=== PATIENT | male | born 1985 | race African-American/Black ===

== ENCOUNTER 2020-12-11 10:23 | Emergency (ER) | payer SELFPAY ==
[~2020-12-11 10:23] MED LIST: AUGMENTIN 875-1 EACH PO; IBUPROFEN400 MG PO; IBUPROFEN800 MG PO; KEFLEX CAP 500500 MG PO; LOPRESSOR 25 MG25 MG PO; MAGIC MOUTHWASH PO; MOBIC15 MG PO; NORCO 7.5-3251 EACH PO
[2020-12-11] MEDS ORDERED: CYCLOBENZAPRINE10 MG PO (14:48)
== END 2020-12-11 15:00 | disposition admitted as inpatient to this hospital (09) ==
LOC: ER1 10:23
DX: S39.012A Strain of muscle, fascia and tendon of lower back, initial encounter (principal); M51.36 Other intervertebral disc degeneration, lumbar region; M53.87 Other specified dorsopathies, lumbosacral region; Z79.1 Long term (current) use of non-steroidal anti-inflammatories (NSAID); F17.200 Nicotine dependence, unspecified, uncomplicated; X58.XXXA Exposure to other specified factors, initial encounter
CPT/HCPCS: 72131; 96374; 96375; 99283; J1885; J2930